=== PATIENT | male | born 1945 | race Caucasian/White ===

== ENCOUNTER 2017-03-06 16:30 | Emergency (ER) | payer OTHER ==
[~2017-03-06] VITALS: Ht 182.9 cm; Wt 94.1 kg
[2017-03-06 16:50] VITALS: BP 155/83; PULSE 86; RESP 20; O2SAT 95
[2017-03-06] MEDS ORDERED: 0.9% Sodium Chloride 1,000 ML IV ONE (17:36)
[2017-03-06 18:14] LABS: BASOPHILS % (AUTO) 0.2 % (0-3); EOSINOPHILS % (AUTO) 0 % (0-5); MONOCYTES % (AUTO) 8.4 % (4-12); Mean Corpuscular Hemoglobin 28.2 pg (27.0-35.0); Mean Corpuscular Volume 83.4 fL (81-100); NEUTROPHILS % (AUTO) 81.9 % (40-74); Platelet Count 231 bil/L (150-400)
--- NOTE | 2017-03-06 18:33 | DRSVH ---
PROCEDURE: X-RAY CHEST, TWO VIEWS ([id number]) INDICATIONS: cough TECHNIQUE: 2 views of the chest were acquired. COMPARISON: [facility], , CHEST 2VW, 03/12/2013, 11:08. FINDINGS: Surgical changes and devices: None. Lungs and pleura: No pleural effusions or pneumothorax. Mild patchy bibasilar airspace opacity. Mediastinum: Mediastinal contours are normal. Heart size is normal. Bones and chest wall: No suspicious bony abnormalities. Soft tissues appear unremarkable. IMPRESSION: Bibasilar pneumonia. Follow up plain films of the chest are recommended to ensure resolut ion, and to exclude underlying or central malignancy. Dictated by: Jonny Vlaadez M.D. on 03/06/2017 at 18:31 Approved by: Jonny Valadez M.D. on 03/06/2017 at 18:31
--- NOTE | 2017-03-06 18:46 | ED.REPORT ---
HPI-General Illness Date of Service March 06, 2017 ED Provider: Malik Gooden MD The patient is a 72 year old male with a medical history including hypertension and diabetes who presents to the ED from Urgent Care reporting a cough onset one week ago. Associated symptoms include chills, subjective fever, insomnia, generalized weakness, headache, nausea, reduced appetite, exertional dyspnea, and recent stress. The patient's symptoms were preceded by two weeks of sore throat. He denies other symptoms. The patient was placed on amoxicillin two days ago, which he has taken with no relief. He has never had similar symptoms in the past. Per the patient he was found to have a pulse ox of 94% on RA while at . Nursing Notes Stated Complaint: FLU-LIKE SYMPTOMS Chief Complaint: FLU/Cold Symptoms Nursing Notes Reviewed: Yes ([facility] not reconciled) Allergies: Coded Allergies: Ehmahmp-Xtr-Sbq Reductase Inhibitor (Verified Allergy, Unknown, 03/06/17) Scheduled Azithromycin (Zithromax (Z-Rivera)) 250 Mg Tablet 250 MG PO DIRECTED Take two tablets by mouth on day 1, then take one tablet daily on days 2 through 5. Scheduled PRN Benzonatate (Tessalon Perle) 100 Mg Capsule 200 MG PO TID PRN PRN For Cough Ondansetron ODT (Ondansetron ODT) 8 Mg Tab.rapdis 8 MG PO Q4H PRN PRN For Nausea General Time Seen by MD: 18:20 Chief Complaint Cough Hx Obtained From: Patient Arrived By: Walk-in Sudden in Onset?: No Onset Occurred: 1 week ago Symptom Duration: Since onset Location: : Head Quality: Painful Severity: Current: Moderate Severity: Maximum: Moderate Pertinent Negative: Relieved by nothing Context Related History: Reports Diabetes mellitus Recent Healthcare: Recent doctor visit Similar Sx Previous: No Past Medical History Past Medical History Hypertension Diabetes mellitus Past Surgical History None reported Smoking History Never Smoker Social History Alcohol Use: Denies alcohol use Drug Use: Denies drug use Other Social History: Good social support Ambulatory Status Independent Review of Systems + Reduced appetite Full Review of Systems Constitutional: Reports: Chills, Fever (Subjective), Weakness - generalized Ears / Nose / Throat: Reports: Sore throat Respiratory: Reports: Dyspnea on exertion, Non-productive cough GI: Reports: Nausea, Denies: Diarrhea, Vomiting Neurologic: Reports: Headache Psychiatric: Reports: Insomnia, Stress Complete sys rev & neg: except as marked. Physical Exam Vital Signs Vital Signs Date Time Temp Pulse Resp B/P Pulse Ox O2 Delivery O2 Flow Rate FiO2 03/06/17 22:38 36.9 89 18 168/89 94 Room Air 03/06/17 16:50 36.6 86 20 155/83 95 Initial VS: Reviewed, Vital signs normal Head / Eyes: Atraumatic, Normocephalic ENT: Conjunctiva normal, No scleral icterus Neck: Supple, Full range of motion Cardiovascular: Regular rate & rhythm, Heart sounds normal Abdomen / GI: Soft, Non-tender Skin: Warm, Dry, No cyanosis Neurologic: Alert, Oriented, Nonfocal Psychiatric: Mood/affect normal, Behavior normal, Normal thought content General/Constitutional: Awake, Alert, No acute distress Respiratory / Chest: Breath sounds = bilat, No respiratory distress Rales / Rhonchi: Positive: Rhonchi diffuse (Bilateral bases) Interpretation & Diagnostics Lab Results Interpretation Result Diagram: 03/06/17 1800 03/06/17 1800 Test 03/06/17 18:00 03/06/17 21:29 White Blood Count 8.9th/mm3 (3.8-10.1) Red Blood Count 4.65mil/mm3 (4.40-5.80) Hemoglobin 13.1g/dL (13.8-17.2) Hematocrit 38.8% (41.0-50.0) Mean Corpuscular Volume 83.4fL (81-100) Mean Corpuscular Hemoglobin 28.2pg (27.0-35.0) Mean Corpuscular Hemoglobin Concent 33.8% (32.0-37.0) Red Cell Distribution Width 13.8% (12.3-15.4) Platelet Count 231bil/L (150-400) Neutrophils (%) (Auto) 81.9% (40-74) Lymphocytes (%) (Auto) 9.4% (14-46) Monocytes (%) (Auto) 8.4% (4-12) Eosinophils (%) (Auto) 0% (0-5) Basophils (%) (Auto) 0.2% (0-3) Sodium Level 132mEq/L (134-144) Potassium Level 4.1mEq/L (3.5-5.2) Chloride Level 96mEq/L (97-108) Carbon Dioxide Level 20mmol/L (18-29) Blood Urea Nitrogen 14mg/dL (8-27) Creatinine 0.89mg/dL (0.76-1.27) Estimat Glomerular Filtration Rate 90mL/min (>59) Glucose Level 179mg/dL (60-99) Calcium Level 9.0mg/dL (8.5-10.1) Total Bilirubin 0.4mg/dL (0.0-1.2) Aspartate Amino Transf (AST/SGOT) 24U/L (0-50) Alanine Aminotransferase (ALT/SGPT) 21U/L (0-44) Alkaline Phosphatase 57U/L (25-160) Total Protein 7.2g/dL (6.4-8.4) Albumin 3.1g/dL (3.4-5.0) Urine Color Yellow (YELLOW) Urine Appearance Clear (CLEAR,HAZY) Urine pH 5.0 (5.0-8.0) Urine Specific [place] 1.025 (1.003-1.035) Urine Protein 30mg/dL (NEG,TRACE) Urine Glucose (UA) Negativemg/dL (NEGATIVE) Urine Ketones 40mg/dL (NEGATIVE) Urine Occult Blood Moderate (NEGATIVE) Urine Nitrite Negative (NEGATIVE) Urine Bilirubin Negative (NEGATIVE) Urine Urobilinogen Normalmg/dL (NORMAL) Urine Leukocyte Esterase Negative (NEGATIVE) Urine RBC 3-10/hpf (0-2) Urine WBC 0-5/hpf (0-5) Urine Epithelial Cells Few/hpf (NONE-MOD) Urine Crystals None seen (NONE SEEN) Urine Bacteria Few/hpf (NONE-FEW) Urine Hyaline Casts None/lpf (NONE) Urine Granular Casts None seen (NONE SEEN) Urine Waxy Casts None seen (NONE SEEN) Urine Red Blood Cell Casts None seen (NONE SEEN) Urine White Blood Cell Casts None seen (NONE SEEN) Urine Mucus None seen (None Seen) Urine Trichomonas None seen (NONE SEEN) Urine Yeast None (NONE SEEN) Urinalysis Comment None Urine Culture Reflexed Not indicated Lab Results Interpretation: CBC normal CMP normal Lactic acid normal Blood cultures 2 pending X-Ray Chest Interpretation Chest Xray Interpretation: IMPRESSION: Bibasilar pneumonia. Follow up plain films of the chest are recommended to ensure resolution, and to exclude underlying or central malignancy. Dictated by: Jonny Valadez M.D. on 03/06/2017 at 18:31 View: AP & lat Interpretation / Wet Read by: Interpret - Radiologist Re-Eval/Medical Decision Med Decision/Clinical Course This is a 72-year-old male presents with fevers and chills the past week with a worsening cough. He was empirically started on Augmentin a couple days with the [facility], but is now doing much worse still having fevers even a little bit of nausea. On exam he has a cough, but he does not appear toxic or ill, he still energetic. He does not appear severely dehydrated. His lungs are coarse, but he has no tachypnea or dyspnea or hypoxia. Heart tones normal. His abdomen soft nontender, no edema. His chest x-rays interpreted as positive for bibasilar pneumonia per the radiologist, although does appear mild. Blood work is generally normal with no high risk markers. Patient cultures drawn and was started on ceftriaxone and Zithromax parenterally. He is comfortable going home, and appears to be a reasonable candidate. He has normal vitals, he does not appear toxic or ill, as laboratory markers are normal. So the plan is to discontinue the Augmentin, and take the azithromycin. He will continue the probiotic. I have written prescription for some Tessalon Perles. He did have some nausea and required a dose of Zofran she was not sure stay down still had nausea so got prochlorperazine at a very low dose and required 22.5 mg doses, but then had complete resolution of nausea, feels well and wishes to go home. He is being discharged in good condition. Routine precautions reviewed. Copies of his radiographs laboratories were provided for him to take to the [facility] for follow-up. Source of Hx: Old records (none in EMR) Time of Eval: 19:41 Re-Evaluation/Progress Note: Patient is now nauseous and vomiting. Time of Eval: 22:18 Patient Status: Condition improved Re-Evaluation/Progress Note: Patient is feeling better and no longer vomiting. Discussed with patient x-ray and lab results, diagnosis, and plan for discharge. Follow-up and return to the ER instructions given. Patient agrees with plan for care and all questions were addressed. Differential Diagnosis: Positive: Diabetes mellitus, Pneumonia, Negative: Abdominal pain, Abrasion, Acute coronary syndrome, Allergies, Asthma, Bronchitis, acute, Cellulitis, G-tube repair/replacement, Medical clearance, Medication refill, Neutropenia, Syncope Counseled Regarding: Diagnosis, Lab results, Need for follow-up, When/why to return to ED Discharge & Departure Primary Impression: Pneumonia Pneumonia type: due to unspecified organism Laterality: bilateral Lung location: lower lobe of lung Qualified Code: J18.9 - Pneumonia, unspecified organism Disposition: Home Discharge Condition All VS Reviewed: Yes Condition: Improved Additional Instructions: 1. Your symptoms appear to be from a developing bibasilar pneumonia (both bases) . 2. Stop the Augmentin (Amox/Clavulanate) 3. You received an injection of the antibiotic ceftriaxone and azithromycin tonight. 4. Your blood tests were normal - although we do have "blood cultures" pending, these cultures take several days for final results. We will call you if anything abnormal gross out of them, and you are welcome to call us at any time to check on her [phone]. 5. Rest. Drink plenty of fluids. 6. Continue your probiotic. 7. Instead of the Augmentin, starting tomorrow take azithromycin 500 mg tomorrow, then 250 mg once a day for an additional 4 days. 8. Take Tylenol 1000 mg up to 3 times a day as needed for fever. 9. If you are having any nausea you can take ondansetron 8 mg up to every 4 hours-let the tab dissolve underneath the tongue. 10. Symptoms are expected to start to improve in about 36-48 hours after starting antibiotics. If he were developing new or worsening symptoms, increasing shortness of breath, or not improving, you should be seen and rechecked-if you are worsening I recommend coming back to the emergency department. Otherwise you can follow up with the [facility]. Referrals: [facility] (PCP) Jobibfiliberto Attestation Portions of this note were transcribed by Lashonda Waterman. I, Dr. Gooden, personally performed the history, physical exam, and medical decision-making; I reviewed and confirmed the accuracy of the information in the transcribed note. Signed by: Chris Morfin, 03/06/2017, 22:50 copies to: [facility] Malik Gooden MD March 06, 2017 18:46 LASHONDA WATERMAN March 06, 2017 18:53
[2017-03-06] MEDS ORDERED: Ondansetron 8 mg ODT Tablet PO ONE (19:00)
[2017-03-06] MEDS ORDERED: Azithromycin Inj 500 MG in Dextrose 5% w/Vial Mate 250 ML IV ONE (19:00)
[2017-03-06] MEDS ORDERED: cefTRIAXone Inj 2,000 MG in Dextrose 5% Minibag Plus 50 ML IV ONE (19:00)
[2017-03-06] MEDS ORDERED: AZIT250T4 PO (19:37)
[2017-03-06] MEDS ORDERED: Ondansetron 2 mg/mL 2 mL Inj ONE (19:39)
[2017-03-06] MEDS ORDERED: Ondansetron 2 mg/mL 2 mL Inj IVPUSH ONE ×2 (19:55→21:35)
[2017-03-06] MEDS ORDERED: ONDA8TAB10 PO (20:49)
[2017-03-06] MEDS ORDERED: ProchlorPERazine 5 mg/mL 2 mL Inj IVPUSH ONE ×2 (20:50→21:35)
[2017-03-06] MEDS ORDERED: _Ondansetron ODT 4 mg Tablet PO PRN (20:50)
[2017-03-06 21:46] LABS: APPEARANCE,URINE CLEAR (CLEAR,HAZY); COLOR,URINE YELLOW (YELLOW); OCCULT BLOOD,URINE MODERATE (NEGATIVE); UROBILINOGEN,URINE NORMAL (NORMAL)
[2017-03-06] MEDS ORDERED: BENZ-12 PO (22:22)
[2017-03-06 22:38] VITALS: BP 168/89; PULSE 89; RESP 18; O2SAT 94
== END 2017-03-06 22:35 | disposition home or self-care (01) ==
LOC: SED 16:30
DX: J18.9 Pneumonia, unspecified organism (principal); I10 Essential (primary) hypertension; E11.9 Type 2 diabetes mellitus without complications
CPT/HCPCS: 36415; 71020; 80053; 81000; 85025; 87040; 96361; 96365; 96368; 96375; 96376; 99285; J0456; J0696; J0780; J1885; J2405; J7030